=== PATIENT | male | born 1950 | race Caucasian/White ===

== ENCOUNTER 2022-05-07 02:38 | Emergency (ER) | payer OTHER ==
[~2022-05-07] VITALS: Ht 177.8 cm; Wt 86.2 kg
[~2022-05-07 02:38] MED LIST: DURICEF500 MG PO
[2022-05-07] MEDS ORDERED: ULTRAM50 MG PO (05:25)
== END 2022-05-07 05:57 ==
LOC: ER 02:38
DX: S43.006A Unspecified dislocation of unspecified shoulder joint, initial encounter (principal); X58.XXXA Exposure to other specified factors, initial encounter; Y92.099 Unspecified place in other non-institutional residence as the place of occurrence of the external cause